=== PATIENT | female | born 1975 | race Caucasian/White ===

== ENCOUNTER 2020-11-11 13:50 | Outpatient (CLI) | payer BC | END 2020-11-11 13:51 | disposition home or self-care (01) | LOC: CSHLAB 13:50 | PROVIDERS: ATTEND Obstetrics & Gynecology | DX: Z01.812 Encounter for preprocedural laboratory examination (principal); Z20.822 Contact with and (suspected) exposure to COVID-19 | CPT/HCPCS: 80048; 84703; 85027; 86850; 86900; 86901; 87635; U0003; U0005 ==

== ENCOUNTER 2020-11-14 05:37 | Inpatient (IN) | payer BC ==
[2020-11-11 16:25] LABS: Hemoglobin 12.4 g/dL (12.0-15.5); Mean Corpuscular HGB CONC 33.2 g/dL (32.0-36.0); Mean Corpuscular Volume 87.4 fl (81.6-98.3); Mean Platelet Volume 11.6 fl (7.4-10.4); Platelet Count 246 10x3/uL (150-450); Red Blood Cell (RBC) Count 4.28 10x6/uL (3.90-5.03); White Blood Cell (WBC) Count 6.9 10x3/uL (3.5-10.5)
[2020-11-11 16:27] LABS: BHCG - Serum Negative (NEGATIVE); Pregs Control Background? CLEAR/WHITE (CLR/WHITE); Pregs Control Bar Appear? YES (CONTROL BAR)
[2020-11-11 16:34] LABS: Anion Gap 15 mmol/L (10-20); BUN (Urea Nitrogen) 9 mg/dL (7.0-18.7); Calc. Creatinine Clearance 0 mL/min (70-130); Calcium 9.2 mg/dL (7.8-10.44); Carbon Dioxide 22 mmol/L (22-29); Chloride 107 mmol/L (98-107); Glucose 133 mg/dL (70-105); Potassium 3.6 mmol/L (3.5-5.1); Sodium 140 mmol/L (136-145)
[2020-11-12 01:31] LABS: SARS-CoV-2 PCR by NAA Not Detected (NotDetected)
[2020-11-13 12:58] VITALS: BMI 33.7
[2020-11-14] MEDS ORDERED: Lidocaine 1% MPF 2 ML VIAL ONE (06:27)
[2020-11-14] MEDS ORDERED: Lidocaine 2% Jelly 5 ML TUBE ONE (06:47)
[2020-11-14] MEDS ORDERED: Fentanyl 100 MCG/2 ML VIAL ONE ×2 (06:51→21:51)
[2020-11-14] MEDS ORDERED: PROPOFOL 20 ML ONE (06:51)
[2020-11-14] MEDS ORDERED: Lidocaine 1% PF 5 ML VIAL ONE (06:51)
[2020-11-14] MEDS ORDERED: Rocuronium Bromide 10 MG/ML (10ML VIAL) ONE (06:51)
[2020-11-14] MEDS ORDERED: Dexamethasone 4 mg/ml Vial ONE (07:12)
[2020-11-14] MEDS ORDERED: PHENYLEPHRINE-NS 100 MCG/ML 10 ML SYRINGE ONE (07:34)
[2020-11-14] MEDS ORDERED: Ondansetron PF 4 MG/2 ML Vial ONE (09:13)
[2020-11-14] MEDS ORDERED: Glycopyrrolate 0.2 MG/ML 5 ML SYRINGE ONE (09:13)
[2020-11-14] MEDS ORDERED: Ketorolac Tromethamine 15 MG/ML VIAL ONE (09:14)
[2020-11-14] MEDS ORDERED: fentaNYL Citrate/PF PCA SYRING 50 ML IV SCH (10:15)
[2020-11-14] MEDS ORDERED: Ketorolac Tromethamine 30 MG/ML VIAL IVP PRN (11:37)
[2020-11-14] MEDS ORDERED: diphenhydrAMINE 25 MG CAP PO PRN (11:45)
[2020-11-14] MEDS ORDERED: Ondansetron PF 4 MG/2 ML Vial IVP PRN (11:45)
[2020-11-14] MEDS ORDERED: Simethicone Chewable 80 MG TAB PO PRN (11:45)
[2020-11-14] MEDS ORDERED: Dextrose 5%-Lactated Ringers 1,000 ML IV SCH (11:45)
[2020-11-14] MEDS ORDERED: Bisacodyl 10 MG SUPP PR PRN (11:45)
[2020-11-14] MEDS ORDERED: Acetaminophen 325 MG TAB PO PRN (11:45)
[2020-11-14] MEDS ORDERED: Promethazine HCl 25 MG/ML VIAL IM PRN (11:45)
[2020-11-14] MEDS ORDERED: HYDROcodone/Acetaminophen 5/325 mg Tablet PO PRN (11:51)
[2020-11-15 09:21] LABS: Hemoglobin 10.4 g/dL (12.0-15.5); Mean Corpuscular HGB CONC 32.2 g/dL (32.0-36.0); Mean Corpuscular Hemoglobin 28.7 pg (27.0-33.0); Platelet Count 212 10x3/uL (150-450); RBC Distribution Width 13.4 % (11.5-14.5); Red Blood Cell (RBC) Count 3.63 10x6/uL (3.90-5.03); White Blood Cell (WBC) Count 14.4 10x3/uL (3.5-10.5)
[2020-11-15] MEDS ORDERED: DC PCA Order Set 1 EACH FS ONE (09:26)
[2020-11-15] MEDS: HYDROcodone/Acetaminophen 5/325 mg Tablet PO PRN ×3 (10:12→20:09)
[2020-11-15] MEDS: Ibuprofen 800 MG TAB PO SCH ×2 (14:27→21:34)
[2020-11-16] MEDS: Ibuprofen 800 MG TAB PO SCH (05:28)
[2020-11-16] MEDS: HYDROcodone/Acetaminophen 5/325 mg Tablet PO PRN ×2 (05:29→12:12)
[2020-11-16 08:16] VITALS: BP 122/68; TEMP 98.1
== END 2020-11-16 14:05 | disposition home or self-care (01) | DRG 743 ==
LOC: CSHSDC 05:37 → CSHPED 10:06 → OBSVTOIN 11-15 11:23
PROVIDERS: ADMIT Obstetrics & Gynecology; ATTEND Obstetrics & Gynecology
PROC: 0UT90ZZ Resection of Uterus, Open Approach (ICD-10-PCS; principal; 2020-11-14)
DX: N92.0 Excessive and frequent menstruation with regular cycle (principal); D25.9 Leiomyoma of uterus, unspecified; N94.6 Dysmenorrhea, unspecified; E78.00 Pure hypercholesterolemia, unspecified; D50.0 Iron deficiency anemia secondary to blood loss (chronic); Z98.51 Tubal ligation status; Q50.01 Congenital absence of ovary, unilateral; Z90.49 Acquired absence of other specified parts of digestive tract; Z79.84 Long term (current) use of oral hypoglycemic drugs; Z83.3 Family history of diabetes mellitus; Z80.3 Family history of malignant neoplasm of breast; Z82.49 Family history of ischemic heart disease and other diseases of the circulatory system
CPT/HCPCS: 36415; 80048; 84703; 85027; 86850; 86900; 86901; 87635; 88307; J0690; J1100; J1885; J2405; J2704; J3010; U0003; U0005

== ENCOUNTER 2021-11-03 10:58 | Outpatient (CLI) | payer BC | END 2021-11-03 10:59 | disposition home or self-care (01) | LOC: CSHMAMMO 10:58 | PROVIDERS: ATTEND Obstetrics & Gynecology | DX: Z12.31 Encounter for screening mammogram for malignant neoplasm of breast (principal); Z80.3 Family history of malignant neoplasm of breast; Z98.82 Breast implant status | CPT/HCPCS: 77063; 77067 ==

== ENCOUNTER 2024-03-29 08:30 | Outpatient (CLI) | payer BC | END 2024-03-29 08:31 | disposition home or self-care (01) | LOC: CSHMAMMO 08:30 | PROVIDERS: ATTEND Obstetrics & Gynecology | DX: Z12.31 Encounter for screening mammogram for malignant neoplasm of breast (principal); Z80.3 Family history of malignant neoplasm of breast; Z98.890 Other specified postprocedural states | CPT/HCPCS: 77067 ==

== ENCOUNTER 2025-03-04 14:01 | Emergency (ER) | payer BC ==
[2025-03-04] MEDS ORDERED: Lidocaine/Transparent Dressing 1 EACH KIT ONE (14:55)
[2025-03-04] MEDS ORDERED: Boostrix 0.5 ML (Tdap) VIAL (>/=7 yrs of age) ONE (15:40)
== END 2025-03-04 15:48 | disposition home or self-care (01) ==
LOC: CSHERS 14:01
DX: S61.214A Laceration without foreign body of right ring finger without damage to nail, initial encounter (principal); Z23 Encounter for immunization; W26.8XXA Contact with other sharp object(s), not elsewhere classified, initial encounter
CPT/HCPCS: 90715

== ENCOUNTER 2025-03-30 11:29 | Outpatient (CLI) | payer BC | END 2025-03-30 11:30 | disposition home or self-care (01) | LOC: CSHMAMMO 11:29 | PROVIDERS: ATTEND Student in an Organized Health Care Education/Training Program | DX: Z12.31 Encounter for screening mammogram for malignant neoplasm of breast (principal); N64.89 Other specified disorders of breast; Z80.3 Family history of malignant neoplasm of breast; Z85.3 Personal history of malignant neoplasm of breast; Z98.890 Other specified postprocedural states | CPT/HCPCS: 77063; 77067 ==

== ENCOUNTER 2025-04-03 07:53 | Outpatient (CLI) | payer BC | END 2025-04-03 07:54 | disposition home or self-care (01) | LOC: CSHMAMMO 07:53 | PROVIDERS: ATTEND Student in an Organized Health Care Education/Training Program | DX: N64.89 Other specified disorders of breast (principal) | CPT/HCPCS: G0279 ==